=== PATIENT | male | born 1955 | race Caucasian/White ===

== ENCOUNTER 2023-08-09 10:46 | Emergency (ER) | payer MEDICARE, SELFPAY ==
[2023-08-09 10:57] VITALS: BP 168/85
--- NOTE | 2023-08-09 12:14 | ED.GENMED ---
History of Present Illness
General
Chief Complaint: Fever
Source: patient and spouse
Exam Limitations: none
Time Seen by Provider: 08/09/23 12:01
Nursing documentation reviewed up to this point in time: agreed with
Travel History
Have you had any contact with someone who has COVID-19?: No
Do you have any symptoms of coronavirus? Fever > 100 degrees, chills, cough, shortness of breath, sore throat, loss of taste or smell, muscle aches, or headache?: Yes
Symptoms:: see triage, fever
History of Present Illness
History of Present Illness:
Patient to ED with complaint of fever, cough, SOB, vomiting, weakness. Symptoms started last PM. Had 3 episodes of vomiting. Today he reports feeling weak. states pulse ox at home was 90% RA. No history of lung disease. Denies headache,
dizziness, chest pain/pressure, abdominal pain. No urinary symptoms. Brought to ED by spouse for eval.
Past History
Past History
ED Past Medical History: HTN
ED Past Surgical History: None
Social History
Tobacco: Non-smoker
Alcohol: None
Drug: None
Personal:
Review of Systems
Review of Systems
Allergies reviewed?: Yes
All Other Systems: ROS reviewed and negative except as documented in HPI and ROS
Constitutional: Reports fever and fatigue
EENT: Reports no symptoms
Respiratory: Reports cough and trouble breathing
Cardiac: Reports no symptoms
ABD/GI: Reports nausea and vomiting
: Reports no symptoms
Musculoskeletal: Reports no symptoms
Skin: Reports no symptoms
Neurological: Reports weakness
Psychiatric: Reports no symptoms
Phy Exam
General Physical Exam
General Presentation: mild distress
General age: appears stated age
General Skin: warm and dry
General Habitus: normal
General Mental: alert
General Hydration: dry mucous membranes
Cardiovascular Exam
Cardiovascular Exam: regular rate/rhythm and no edema
Pulmonary Exam
Pulmonary Exam: lungs clear, no respiratory distress and chest non tender
Gastrointestinal Exam
Gastrointestinal Exam: normal bowel sounds, non tender, soft and no organomegaly
Musculoskeletal Exam
Musculoskeletal Exam: full ROM and neuro vasc intact
Skin Exam
Skin Exam: normal color, warm/dry and no rash
Psychiatric Exam
Psychiatric Exam: normal mood/affect
Course
Orders/Labs/Results
Orders:
Orders
08/09/23 12:11
Acetaminophen [Tylenol] 1,000 mg PO NOW STA
08/09/23 12:12
Urinalysis Reflex To Culture Urgent
Date Specimen was Collected: 08/09/23
Time Specimen was Collected: 13:20
0.9% Sodium Chloride 1000 ml [Nss] 1,000 ml IV BOLUS
08/09/23 12:14
CR Chest - 2 Views Urgent
Comment:
Reason For Exam: SOB, cough, fever.
08/09/23 12:57
COVID-19 Antigen Urgent
Source: Nasal Swab
Complete Blood Count/With Diff Urgent
Lactic Acid Urgent
Influenza A+B Rapid Molecular Urgent
MUKESH Source: Nasal Swab
Specimen Description:
08/09/23 13:22
Comprehensive Metabolic Panel Urgent
Lipase Urgent
Blood Culture Q30M
MUKESH Source: Blood/Venous
Specimen Description:
Blood Culture Q30M
MUKESH Source: Blood/Venous
Specimen Description:
08/09/23 14:08
Oseltamivir Phosphate [Tamiflu] 75 mg PO NOW STA
Abnormal Lab Results
08/09/23 08/09/23
12:57 13:22
RBC 4.49 L 10^6/uL
(4.70-6.10)
MCH 31.4 H pg
(27.0-31.0)
MPV 11.5 H fL
(7.4-10.4)
Abs Immat Gran (auto) 0.1 H 10^3/uL
(0-0.05)
Absolute Lymphs (auto) 0.9 L 10^3/uL
(1.2-3.4)
Absolute Monos (auto) 1.1 H 10^3/uL
(0.1-0.6)
Immature Gran % 0.6 H %
(0-0.5)
Lymphocytes % 11.0 L %
(20.5-51.1)
Monocytes % 12.9 H %
(1.7-9.3)
Sodium 134 L mmol/L
(135-145)
BUN 21 H mg/dl
(9-20)
Creatinine 1.5 H mg/dL
(0.7-1.3)
Glucose 122 H mg/dl
(70-99)
08/09/23 12:57
08/09/23 13:22
Vital Signs
Initial and Last Documented VS:
Initial Vital Signs
Temp Pulse Resp BP Pulse Ox
102.4 F H 107 18 168/85 93
08/09/23 10:57 08/09/23 10:57 08/09/23 10:57 08/09/23 10:57 08/09/23 10:57
Last Documented Vital Signs
Temp Pulse Resp BP Pulse Ox
98.2 F 91 18 122/70 92
08/09/23 15:16 08/09/23 15:16 08/09/23 13:30 08/09/23 15:16 08/09/23 15:16
*Radiology
Radiology exam reviewed: radiology read reviewed
*Pulse Oximetry
Patient hypoxic: no
*Critical Care Note
Total Time (30-74mins, 75-104mins- exclusive of procedures): Not Applicable
Update Note
Update Note:
Influenza A pos. Improved after IV fluids, tylenol. Temp no 98.6, HR 92. PUlse ox 96% RA. Tamiflu started in dept. give rx for prophylactic course. He is discharged home and will follow closely with PCP Given instructions on s/s to
return to ED and he is agreeable to plan.
ED Attending Note
-
Portions of this chart may have been created with voice recognition software.� Occasional wrong word or��sound alike� substitutions may have occurred due to the inherent limitations of voice recognition software.
Discharge Plan
Departure
Patient Disposition: Home (Routine Discharge)
Date of Disposition: 08/09/23
Time of Disposition: 14:15
Patient with high blood pressure during this ER visit?: No
Condition: Good
Covid-19: Not Applicable
Discharge Problem:
Influenza
Instructions: Dehydration, Adult (DC), Flu, Adult (DC), Fever, Adult (DC)
Prescriptions:
New
oseltamivir [Tamiflu] 75 mg capsule
75 mg PO BID 5 Days Qty: 10 0RF
Referrals:
PRIVATE,PHYSICIAN [Family Provider] -
Activity Restrictions/Additional Instructions:
Follow up with your family doctor. Return to the emergency department immediately for fever not responding to tylenol or motrin, not eating or drinking, lethargy, any difficulty breathing, or for any further concerns. Increase you fluid intake
Interventions
Interventions:
*Risk Screen - Suicide Last Done: 08/09/23 12:26
*General Assessment Last Done: 08/09/23 10:57
*Neglect/Abuse Screening Last Done: 08/09/23 14:32
ED- Fall Risk Assessment Last Done: 08/09/23 12:30
*ED COVID-19 Vaccine History Last Done: 08/09/23 10:57
*Nursing Disposition Last Done: 08/09/23 15:16
ED- Neurological Assessment Last Done: 08/09/23 12:30
ED-Skin Assessment Last Done: 08/09/23 12:30
Discharge Date and Time
Discharge Date/Time: 08/09/23 15:17
[2023-08-09 12:24] VITALS: BMI 35.5
[2023-08-09] MEDS: TYLENOL 1000 MG PO (12:40)
[2023-08-09 13:08] LABS: % Basophils 0.8 % (0-2); % Eosinophils 0.1 % (0-6); % Immature Granulocytes 0.6 % (0-0.5); % Monocytes 12.9 % (1.7-9.3); % Neutrophils 74.6 % (42.2-75.2); Absolute Basophils 0.1 10^3/uL (0-0.2); Absolute Immature Granulocytes 0.1 10^3/uL (0-0.05); Absolute Lymphocytes 0.9 10^3/uL (1.2-3.4); Absolute Monocytes 1.1 10^3/uL (0.1-0.6); Absolute Neutrophils 6.3 10^3/uL (1.4-6.5); Hematocrit 39.8 % (39.0-52.0); Hemoglobin 14.1 g/dL (13.0-18.0); Mean Corp Hgb Conc. 35.4 g/dL (33.0-37.0); Mean Corpuscular Hgb 31.4 pg (27.0-31.0); Mean Corpuscular Volume 88.6 fL (80.0-94.0); Nucleated Red Blood Cells % 0 % (-); Red Blood Cell Count 4.49 10^6/uL (4.70-6.10); Red Cell Dist. Width 12.7 % (11.5-14.5); White Blood Cell Count 8.5 10^3/uL (4.8-10.8)
[2023-08-09 13:24] LABS: Mean Platelet Volume 11.5 fL (7.4-10.4)
[2023-08-09 13:30] VITALS: BP 127/72
[2023-08-09] MEDS: NSS 1000 IV (13:37)
[2023-08-09 13:38] LABS: Lactic Acid 1.9 mmol/L (0.7-2.0)
[2023-08-09 13:48] LABS: ALT (SGPT) 45 U/L (0-50); AST (SGOT) 45 U/L (17-59); Albumin 4.4 g/dl (3.5-5.0); Alkaline Phosphatase 62 U/L (38-126); Blood Urea Nitrogen 21 mg/dl (9-20); Calcium 9.2 mg/dl (8.4-10.2); Carbon Dioxide 29 mmol/L (22-30); Chloride 99 mmol/L (98-107); Estimated Creatinine Clearance 67 ml/min; Glucose 122 mg/dl (70-99); Lipase 137 U/L (23-300); Potassium 3.9 mmol/L (3.5-5.1); Sodium 134 mmol/L (135-145); Total Bilirubin 0.7 mg/dl (0.2-1.3); eGFR 49.77
[2023-08-09 13:52] LABS: COVID-19 Antigen Negative (Negative)
[2023-08-09] MEDS: TAMIFLU 75 MG PO (14:25)
[2023-08-09 15:16] VITALS: BP 122/70
== END 2023-08-09 15:17 | disposition home or self-care (01) ==
LOC: EMR 10:46
PROVIDERS: Nurse Practitioner; EMERGENCY PHYSICIAN Emergency Medicine
DX: J10.1 Influenza due to other identified influenza virus with other respiratory manifestations (principal); I10 Essential (primary) hypertension
CPT/HCPCS: 99283; 96360; 71046; 80053; 83605; 83690; 85025; 87040; 87502; 87811